=== PATIENT | female | born 1935 | race Two or more races ===

== ENCOUNTER 2020-10-29 09:31 | Emergency (ER) | payer OTHER ==
[~2020-10-29] VITALS: Ht 160 cm; Wt 62.1 kg
[2020-10-29] MEDS ORDERED: LEVOXYL75 MCG PO (09:42)
[2020-10-29] MEDS ORDERED: CIPRO500 MG PO (13:02)
== END 2020-10-29 13:48 | disposition home or self-care (01) ==
LOC: ER 09:31
DX: N39.0 Urinary tract infection, site not specified (principal); Z03.818 Encounter for observation for suspected exposure to other biological agents ruled out

== ENCOUNTER 2023-10-09 09:37 | Emergency (ER) | payer OTHER ==
[~2023-10-09] VITALS: Ht 160 cm; Wt 59.0 kg
[~2023-10-09 09:37] MED LIST: CIPRO500 MG PO; LEVOXYL75 MCG PO
[2023-10-09] MEDS ORDERED: NEURONTIN300 MG (10:06)
[2023-10-09] MEDS ORDERED: SYNTHROID75 MCG PO (10:07)
== END 2023-10-09 16:22 ==
LOC: ER 09:37
DX: M50.323 Other cervical disc degeneration at C6-C7 level (principal); E03.9 Hypothyroidism, unspecified; E06.3 Autoimmune thyroiditis; M94.0 Chondrocostal junction syndrome [Tietze]
CPT/HCPCS: 72040; 96372; 99284; J1885; J2360